=== PATIENT | female | born 1955 | race Caucasian/White ===

== ENCOUNTER 2018-03-07 13:02 | Outpatient (CLI) | payer OTHER ==
--- NOTE | 2018-03-07 15:29 | ULT ---
CAROTID DUPLEX SONOGRAM: History: Vascular disease. TIA. FINDINGS: Right: Mild plaque. Color and spectral doppler evaluation, peak systolic velocity 131 cm/sec, and IC/ CC ratio of 1.2 suggests no hemodynamically significant stenosis within the extracranial right ICA. A ntegrade flow within the vertebral artery. Left: Mild to moderate plaque. Color and spectral doppler evaluation, peak systolic velocity of 119 c m/sec, and IC/CC ratio of 1.1 suggests no hemodynamically significant stenosis within the extracrania l left ICA. Antegrade flow within the vertebral artery. IMPRESSION: Atherosclerosis. No sonographic evidence of hemodynamically significant ICA stenosis. POS: [facility]
== END 2018-03-07 13:03 | disposition home or self-care (01) ==
LOC: SCSULT 13:02
PROVIDERS: ATTEND Family Medicine
DX: I65.22 Occlusion and stenosis of left carotid artery (principal); I70.90 Unspecified atherosclerosis
CPT/HCPCS: 93880